=== PATIENT | male | born 1990 | race Caucasian/White ===

== ENCOUNTER 2021-09-03 14:58 | Emergency (ER) | payer OTHER, SELFPAY ==
[2021-09-03 15:03] VITALS: BP 150/89; PULSE 112; RESP 16; TEMP 36.3; O2SAT 99
--- NOTE | 2021-09-03 15:13 | ED.RECABL ---
HPI - Recheck/Abnormal Lab/Rx General Chief Complaint: Recheck/Abnormal Lab/Rx Stated Complaint: needs Quetiapin and Venlafaxin prescription Time Seen by Provider: 09/03/21 15:10 Source: patient Mode of arrival: ambulatory Limitations: no limitations History of Present Illness HPI narrative: This is a 28-year-old male that presents to the emergency department for medication refill. Reports he is currently on a business trip from [facility]. He has 3 more days left here and is out of his venlafaxine. He otherwise has no complaints. Review of Systems Review of Systems: CONSTITUTIONAL: Denies fever CARDIOVASCULAR: Denies chest pain RESPIRATORY: Denies shortness of breath PSYCHIATRIC: Reports history of anxiety and depression. All systems reviewed & are unremarkable except as noted in HPI and below PMFSH Past Medical History Medical History (Updated 09/03/21 @ 15:16 by Kaylee Lemon PA-C) History of anxiety History of Crohn's disease Social History Social History (Updated 09/03/21 @ 15:15 by Kaylee Lemon PA-C) Smoking status: Never smoker Exam Narrative: GENERAL: Well-appearing, well-nourished, and in no acute distress. HEAD: Normocephalic, atraumatic. EYES: EOMI. CHEST: Clear to auscultation. No respiratory distress. No wheezes rales or rhonchi HEART: Regular rate and rhythm. No murmur heard. Normal peripheral pulses. EXTREMITIES: Normal range of motion. No edema. SKIN: Warm, dry, no rash. NEURO: No focal deficits. Alert and oriented x3. PSYCH: Normal mood and affect Course Vital Signs Vital signs: Vital Signs Temperature 97.4 F L 09/03/21 15:03 Pulse Rate 112 H 09/03/21 15:03 Respiratory Rate 16 09/03/21 15:03 Blood Pressure 150/89 H 09/03/21 15:03 Pulse Oximetry 99 09/03/21 15:03 Temperature 97.4 F L 09/03/21 15:03 Pulse Rate 112 H 09/03/21 15:03 Respiratory Rate 16 09/03/21 15:03 Blood Pressure 150/89 H 09/03/21 15:03 Pulse Oximetry 99 09/03/21 15:03 MDM - Recheck/Abnormal Lab/Rx MDM Narrative Medical decision making narrative: Patient presents to the emergency department for medication refill. He has no other complaints. Is currently on a business trip. Is out of his medication, and still has a couple of days in the [place]. Patient will be given refill for the next couple of days so he does not run out of his medication. He was instructed to follow-up with his primary doctor back home. He was given warnings to return to the ER Critical Care Time Critical Care Time Critical Care Time: No Discharge Plan Discharge Clinical Impression: Encounter for medication refill Patient Disposition: Home, Self-Care Condition: Stable Instructions: Venlafaxine (By mouth) Additional Instructions: Return to the emergency department if you experience fever, chest pain, shortness of breath, thoughts of harming yourself or anyone else, or any other symptoms that are concerning to you Continue your home medications as prescribed Follow-up with your primary care doctor Prescriptions: New venlafaxine 150 mg capsule,extended release 24hr 150 mg PO DAILY Qty: 7 RF: 0 Follow-up/Referrals: PHYSICIAN,[employer] [Primary Care Provider] -
[2021-09-03 15:20] VITALS: PULSE 96; RESP 16; TEMP 36.3; O2SAT 99
[2021-09-03 15:28] VITALS: RESP 16; O2SAT 99
== END 2021-09-03 15:29 | disposition home or self-care (01) ==
LOC: ANHED 15:24
PROVIDERS: Emergency Provider Emergency Medicine
DX: F41.9 Anxiety disorder, unspecified (principal); K50.90 Crohn's disease, unspecified, without complications
CPT/HCPCS: 99281